=== PATIENT | female | born 1995 | race Caucasian/White ===

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

== ENCOUNTER → 2017-06-08 | Outpatient (CLI) | payer BC ==
--- NOTE | 2017-06-08 12:25 | FL ---
EXAMINATION TYPE: FL small bowel follow through DATE OF EXAM: 06/08/2017 CLINICAL HISTORY: Abdominal pain and intermittent diarrhea/constipation since prior cholecystectomy. Patient also complains of gastroesophageal reflux. TECHNIQUE: A single contrast small bowel follow through is performed utilizing barium. 15 images w ere saved and 1 minute and 14 seconds of fluoroscopy time was utilized. COMPARISON: None FINDINGS: Philosophy Instructor image of the abdomen shows no acute abnormality. Moderate amount retained stool is s een throughout the nondilated colon. The small bowel study shows normal transit to the colon in less than one hour and 40 minutes. There i s a normal mucosal fold pattern throughout the small bowel. There is no evidence of any stricture or filling defect noted. The terminal ileum is spotted and appears unremarkable. IMPRESSION: Unremarkable small bowel follow through with normal transit time.
[2017-06-08 12:48] LABS: CHCM 33.1; HCT 40.9 % (34.0-46.0); HGB 13.4 gm/dL (11.4-16.0); MCH 29.9 pg (25.0-35.0); MCHC 32.8 g/dL (31.0-37.0); Mean Platelet Volume 6.9; RBC 4.49 m/uL (3.80-5.40); RDW 13.1 % (11.5-15.5); WBC 6.4 k/uL (4.0-11.0)
[2017-06-08 13:33] LABS: ALT 28 U/L (9-52); AST 21 U/L (14-36); Alkaline Phosphatase 54 U/L (38-126); Anion Gap 11 mmol/L; Blood Urea Nitrogen 10 mg/dL (7-17); C Reactive Protein 5.4 mg/L (<10.0); Calcium 9.9 mg/dL (8.4-10.2); Carbon Dioxide 25 mmol/L (22-30); Chloride 104 mmol/L (98-107); Glucose 84 mg/dL (74-99); Non-African American GFR(MDRD) >60 (>60 ml/min/1.73 sqM); Potassium 4.8 mmol/L (3.5-5.1); Sodium 140 mmol/L (137-145); Total Bilirubin 0.2 mg/dL (0.2-1.3)
[2017-06-08 14:18] LABS: Erythrocyte Sedimentation Rate 9 mm/hr (0-20)
[2017-06-08 15:58] LABS: Gliadin AB IgA, Deaminated NEGATIVE (NEGATIVE); Gliadin AB IgG, Deaminated NEGATIVE (NEGATIVE); Gliadin AB IgG, Unit <0.4 U/mL; Tis Transglutaminase IgA Unit <0.5 AI; Tis Transglutaminase IgG Unit <0.8 U/mL
== END | disposition home or self-care (01) ==
LOC: RADFLMAIN 09:09
PROVIDERS: ATTEND Internal Medicine Gastroenterology
DX: R10.13 Epigastric pain (principal)
CPT/HCPCS: 36415; 74250; 80053; 83516; 85027; 85652; 86140

== ENCOUNTER → 2020-02-19 | Outpatient (CLI) | payer BC | END | disposition home or self-care (01) | LOC: LABWHC1 10:19 | PROVIDERS: ATTEND Family Medicine | DX: J02.9 Acute pharyngitis, unspecified (principal); R11.0 Nausea; R53.83 Other fatigue; R09.82 Postnasal drip | CPT/HCPCS: U0003; C9803 ==